=== PATIENT | female | born 1950 | race Caucasian/White ===

== ENCOUNTER 2021-05-16 18:38 | Emergency (ER) | payer OTHER ==
[2021-05-16] MEDS ORDERED: Cyclobenzaprine 10 MG Tab PO ONE (18:39)
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
== END 2021-05-16 21:14 | disposition home or self-care (01) ==
LOC: FB.ED 18:38
DX: S13.4XXA Sprain of ligaments of cervical spine, initial encounter (principal); Z88.1 Allergy status to other antibiotic agents; Z91.011 Allergy to milk products; Z91.040 Latex allergy status; Z88.8 Allergy status to other drugs, medicaments and biological substances; V49.40XA Driver injured in collision with unspecified motor vehicles in traffic accident, initial encounter; Y92.410 Unspecified street and highway as the place of occurrence of the external cause
CPT/HCPCS: 72125; 99284; A9270